=== PATIENT | female | born 2000 | race American Indian/Alaskan Native ===

== ENCOUNTER 2020-10-08 18:44 | Emergency (ER) | payer OTHER ==
[2020-10-08] MEDS ORDERED: ACETAMINOPHEN 500 MG TAB PO ONE (23:46)
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
[2020-10-09 01:18] VITALS: BP 109/63
== END 2020-10-09 01:00 | disposition home or self-care (01) ==
LOC: ED 18:44
DX: S39.012A Strain of muscle, fascia and tendon of lower back, initial encounter (principal); M62.830 Muscle spasm of back; Z79.899 Other long term (current) drug therapy; V49.49XA Driver injured in collision with other motor vehicles in traffic accident, initial encounter; Y92.410 Unspecified street and highway as the place of occurrence of the external cause; Y93.89 Activity, other specified; Y99.8 Other external cause status
CPT/HCPCS: 99282